=== PATIENT | male | born 1950 | race Caucasian/White ===

== ENCOUNTER 2020-11-20 12:20 | Emergency (ER) | payer MEDICARE, SELFPAY ==
--- NOTE | ~2020-11-20 | CT_ITS ---
EXAMINATION: CT abdomen pelvis w con EXAM DATE: 11/20/2020 14:09 INDICATION: Low abdominal pain for diverticulitis. TECHNIQUE: Spiral CT of the abdomen and pelvis was performed following intravenous injection of 100 m L Omnipaque 350. Axial, coronal and sagittal images were reviewed. The dose-length product (DLP) fo r this examination was 264.48 mGy-cm. The exposure was tailored according to patient size (auto mA e xposure control), and iterative reconstruction (ASIR) was used as additional dose reduction technique . Comparison is made to prior examination from CT 03/07/2018. FINDINGS: There is extensive colonic diverticulosis. Moderate amount of inflammation at the descendin g/sigmoid colonic junction, most likely uncomplicated diverticulitis. Inflammatory cancer not excluda ble. No perforation or abscess. The liver, spleen, adrenal glands and pancreas are unremarkable. Gallbladder is unremarkable. No bi liary obstruction. Portal and splenic veins are patent. Kidneys enhance symmetrically. There is no hydronephrosis. There is mild prostatomegaly. The bladder is unremarkable. There is no retroperit solis or pelvic lymphadenopathy. There is moderate scattered arteriosclerotic disease. There are no findings to suggest appendicitis. The stomach and small bowel are unremarkable. There is expected amount of colonic stool. No free intraperitoneal gas. The heart is normal in size. T here are no pericardial or pleural effusions. The lung bases are unremarkable. There are no osteobl astic or osteolytic lesions identified. IMPRESSION: Acute uncomplicated descending/sigmoid colonic diverticulitis. Inflammatory cancer less l ikely. Follow-up CT or colonoscopy if not recently screened. Reviewed, dictated and finalized at location B. MOTIVE ALIGNMENT SPECIALIST IMPRESSION: Acute uncomplicated descending/sigmoid colonic diverticulitis. Infl ammatory cancer less likely. Follow-up CT or colonoscopy if not recently screen ed.
[2020-11-20 12:44] VITALS: BP 127/68; PULSE 59; RESP 15; TEMP 36.9; O2SAT 100
[2020-11-20] MEDS: fentaNYL CITRATE INJ (*CRX) 100 MCG/2 ML VIAL 50 MCG IV PUSH ×2 (12:48→14:31)
[2020-11-20 12:53] LABS: Basophils Percent Auto 0.2 % (0.2-1.2); Eosinophils Absolute Auto 0.1 K/mm3 (0-0.3); Eosinophils Percent Auto 1.2 % (0-4.4); Hematocrit 44.1 % (42.0-52.0); Hemoglobin 14.5 g/dL (14.0-18.0); Immature Granulocyte Absolute 0.04 K/mm3 (0.00-0.031); Immature Granulocyte Percent A 0.4 % (0-0.5); Lymphocytes Absolute Auto 1.35 K/mm3 (0.9-3.2); Lymphocytes Percent Auto 12.9 % (18.3-44.2); Mean Corpuscular HGB Conc 32.9 g/dl (32-36); Mean Corpuscular Volume 85.3 fl (80-100); Mean Platelet Volume 9.4 fl (7.4-10.4); Monocytes Absolute Auto 0.9 K/mm3 (0.1-0.6); Monocytes Percent Auto 8.5 % (2.6-8.5); Neutrophils Percent Auto 76.8 % (45.5-73.1); Platelet Count Result 254 k/mm3 (150-375); Red Blood Count 5.17 M/mm3 (4.6-6.20); Red Cell Distribution Width 13.4 % (11.5-14.5); White Blood Count 10.4 K/mm3 (4.5-10.0)
[2020-11-20 13:32] LABS: Alanine Aminotransferase 25 U/L (4-50); Alkaline Phosphatase 60 U/L (38-126); Anion Gap 8 mmol/L (8-16); Aspartate Amino Transferase 27 U/L (17-59); Bilirubin,Total 0.6 mg/dL (0.2-1.3); Blood Urea Nitrogen 19 mg/dL (9-20); Calcium 9.4 mg/dL (8.4-10.2); Carbon Dioxide 27 mmol/L (22-30); Chloride 103 mmol/L (98-107); Estimated CRCL calculation 54 ml/min; Estimated Glomerular Filt Rate > 60; Glucose 109 mg/dL (75-110); Potassium 4.2 mmol/L (3.4-5.0); Sodium 138 mmol/L (137-145)
--- NOTE | 2020-11-20 14:45 | ED.GENADULT ---
HPI - General Adult General Chief complaint: Abdominal Pain Stated complaint: abd pain Time Seen by Provider: 11/20/20 12:31 History of Present Illness HPI narrative: Patient is a 70-year-old male who was referred to the ER by his PCP who has left lower quadrant abdominal pain. Sudden onset over the last day. Has history of diverticulitis. Patient reports 1 week ago he had a fever but he felt it was related to a dental abscess he had to have procedure on. No chills or sweats. No nausea or vomiting. Has had no diarrhea like this. Sent in for further evaluation due to rapid development of pain. Related Data Allergies Allergy/AdvReac Type Severity Reaction Status Date / Time acetaminophen Allergy Unknown Nausea and Verified 11/20/20 13:10 Vomiting amoxicillin Allergy Unknown possible Verified 11/20/20 13:10 reaction doxycycline Allergy Unknown Unknown Verified 11/20/20 13:10 fluoxetine Allergy Unknown Nausea Verified 11/20/20 13:10 hydrocodone Allergy Unknown Nausea and Verified 11/20/20 13:10 Vomiting morphine Allergy Unknown Loss of Verified 11/20/20 13:10 Consciousness Contrast Media Allergy Unknown Unknown Uncoded 11/20/20 13:10 Review of Systems Review of Systems: All systems reviewed & are unremarkable except as noted in HPI and below Constitutional: Constitutional: Denies chills, Reports fever(s) and Denies weakness ENT: Denies nasal congestion and Denies sore throat Cardiovascular: Cardiovascular: Denies chest pain, Denies rapid heart rate and Denies radiating jaw, neck or arm pain Respiratory: Respiratory: Denies cough and Denies dyspnea Gastrointestinal: Gastrointestinal: Reports abdominal pain, Denies diarrhea, Denies nausea and Denies vomiting [facility] Past Medical History Medical History (Updated 11/20/20 @ 14:51 by Alvaro De Souza MD) Diverticulitis Family History Family History Mother Family history of cardiovascular disease Cerebrovascular accident, Onset Age: 85 Father Acute myocardial infarction Family history of cardiovascular disease, Onset Age: 60 Social History Social History (Updated 11/20/20 @ 11:58 by Jennifer Menjivar CMA) Second hand tobacco smoke exposure: No Alcohol intake: never Substance use: never Substance use type: does not use Gender identity (if verbalized by the patient): Male Spiritual care concerns: No Agree to blood products: Yes Exam Narrative: Exam Narrative: GENERAL: Well-appearing, well-nourished, and in no acute distress. HEAD: Normocephalic, atraumatic. CHEST: Clear to auscultation. No respiratory distress. HEART: Regular rate and rhythm. Normal peripheral pulses. ABDOMEN: Soft, tender palpation left lower quadrant with guarding, nondistended. EXTREMITIES: Normal range of motion. No edema. SKIN: Warm, dry, no rash. NEURO: Alert and oriented x3. PSYCH: Normal mood and affect. Course Course Emergency Course: Informed of results. Moderate improvement with fentanyl. Discharged with supportive medications. Vital Signs Vital signs: Vital Signs Temperature 98.5 F 11/20/20 12:44 Pulse Rate 59 L 11/20/20 12:44 Respiratory Rate 15 11/20/20 12:44 Blood Pressure 127/68 11/20/20 12:44 Pulse Oximetry 100 11/20/20 12:44 Temperature 98.5 F 11/20/20 12:44 Pulse Rate 59 L 11/20/20 12:44 Respiratory Rate 15 11/20/20 12:44 Blood Pressure 127/68 11/20/20 12:44 Pulse Oximetry 100 11/20/20 12:44 Medical Decision Making Vital Signs Vital Signs: Vital Signs Temperature 98.5 F 11/20/20 12:44 Pulse Rate 59 L 11/20/20 12:44 Respiratory Rate 15 11/20/20 12:44 Blood Pressure 127/68 11/20/20 12:44 Pulse Oximetry 100 11/20/20 12:44 Temperature 98.5 F 11/20/20 12:44 Pulse Rate 59 L 11/20/20 12:44 Respiratory Rate 15 11/20/20 12:44 Blood Pressure 127/68 11/20/20 12:44 Pulse Oximetry 100
[2020-11-20 15:07] VITALS: BP 125/70; PULSE 60; RESP 17; O2SAT 100
== END 2020-11-20 15:08 | disposition home or self-care (01) ==
PROVIDERS: Emergency Provider Emergency Medicine; PCP Family Medicine
DX: K57.92 Diverticulitis of intestine, part unspecified, without perforation or abscess without bleeding (principal)
CPT/HCPCS: 36415; 74177; 80053; 85025; 96374; 96376; 99284; J3010; Q9967

== ENCOUNTER → 2021-02-15 01:04 | Outpatient (CLI) | payer MEDICARE, SELFPAY ==
[2021-02-15 19:38] LABS: SARS-CoV-2 RNA PCR Negative
== END ==
PROVIDERS: PCP Family Medicine; Visit Provider Internal Medicine Gastroenterology
DX: Z01.812 Encounter for preprocedural laboratory examination (principal); Z20.822 Contact with and (suspected) exposure to COVID-19
CPT/HCPCS: C9803; U0003; U0005

== ENCOUNTER 2021-02-19 01:25 | Day surgery (SDC) | payer MEDICARE, SELFPAY ==
[2021-02-06 14:23] VITALS: BMI 22.8
[2021-02-19 10:38] VITALS: BP 121/71; PULSE 51; RESP 14; TEMP 36.5; O2SAT 100
[2021-02-19] MEDS: LACTATED RINGERS 1,000 ML 150 ML IV CONT (10:49)
--- NOTE | 2021-02-19 11:39 | P.PNAN_ITS ---
Anes - Initial Pre Proc Eval Procedure: Operation Date: 02/19/21 11:45 Proposed Procedures p Colonoscopy - Davin Sierra MD Date/Time: 02/19/21 11:39 Surgeon: Davin Sierra MD Pre Op Diagnosis: diverticulitis Patient Data Age: 70 Gender: M Height: 5 ft 9 in Weight: 68.4 kg Last Vital Signs Temp 97.7 F 02/19/21 10:38 Pulse 51 L 02/19/21 10:38 Resp 14 02/19/21 10:38 BP 121/71 02/19/21 10:38 Pulse Ox 100 02/19/21 10:38 Allergies Allergy/AdvReac Type Severity Reaction Status Date / Time doxycycline Allergy Unknown Unknown Verified 02/19/21 10:36 fluoxetine Allergy Unknown Nausea Verified 02/19/21 10:36 hydrocodone Allergy Unknown Nausea and Verified 02/19/21 10:36 Vomiting morphine Allergy Unknown Loss of Verified 02/19/21 10:36 Consciousness Home Medications Medication Instructions Recorded Confirmed Type No Home Medications 02/06/21 02/06/21 History Patient hx anesthesia problems: none Family hx anesthesia problems: none [facility] Past Medical History Medical History (Updated 02/19/21 @ 11:39 by Davin Sierra MD) Colon cancer screening Diverticulitis Family History Family History Mother Family history of cardiovascular disease Cerebrovascular accident, Onset Age: 85 Father Acute myocardial infarction Family history of cardiovascular disease, Onset Age: 60 Social History Social History Smoking status: Never smoker Second hand tobacco smoke exposure: No Alcohol intake: never Substance use: never Substance use type: does not use Living arrangements: with family Gender identity (if verbalized by the patient): Male Spiritual care concerns: No Agree to blood products: Yes Anes - Eval Final PreProcedure Day of Procedure 02/19/21 11:39 Patient weight: normal Heart: regular rate and rhythm and bradycardia Lungs: clear to auscultation Airway: Mallampati scale class II Neurological: alert and oriented Last oral intake: >/= 8 hours ASA classification: II Emergent: no Anesthetic plan: proceed Anesthesia type and monitoring: general GIVS and standard monitoring Informed Consent: The patient's anesthetic plan and its attendant risks and benefits were discussed with the patient/family/POA. Questions were solicited and answers provided to the satisfaction of the patient/family/POA.
--- NOTE | 2021-02-19 11:39 | PM.HPGS ---
History of Present Illness History of Present Illness Consent: Risks, benefits, and alternatives have been discussed and questions answered. Patient agrees to proceed with procedure. Chief complaint: diverticulitis Narrative: Leo Fontenot is a 70 year old male here for colon screening, last colonoscopy 2011. He had diverticulitis 11/2020 treated with abx Review of Systems Constitutional: Constitutional: Denies headache(s) and Denies weakness Eyes: Eyes: Denies blurry vision ENT: Reports Normal hearing present, Denies headache(s) and Denies neck pain Cardiovascular: Cardiovascular: Denies chest pain and Denies dyspnea Respiratory: Respiratory: Denies dyspnea Gastrointestinal: Gastrointestinal: Reports no additional gastrointestinal complaints Genitourinary: Genitourinary: Denies dysuria Musculoskeletal: Musculoskeletal: Denies neck pain Integumentary/Breasts: Skin/Breast: Denies dry skin Neurologic: Reports Normal hearing present, Denies headache(s) and Denies weakness Psychiatric: Psychiatric: Denies anxiety Endocrine: Endocrine: Denies change in body appearance Hematologic/Lymphatic: Hematologic/Lymphatic: Denies easy bleeding Allergic/Immunologic: Allergic/Immunologic: Denies urticaria PMFSH Past Medical History Medical History (Updated 02/19/21 @ 11:39 by Davin Sierra MD) Colon cancer screening Diverticulitis Family History Family History Mother Family history of cardiovascular disease Cerebrovascular accident, Onset Age: 85 Father Acute myocardial infarction Family history of cardiovascular disease, Onset Age: 60 Social History Social History Smoking status: Never smoker Second hand tobacco smoke exposure: No Alcohol intake: never Substance use: never Substance use type: does not use Living arrangements: with family Gender identity (if verbalized by the patient): Male Spiritual care concerns: No Agree to blood products: Yes Meds Home Medications and Allergies Home Medications Medication Instructions Recorded Confirmed Type No Home Medications 02/06/21 02/06/21 History Allergies Allergy/AdvReac Type Severity Reaction Status Date / Time doxycycline Allergy Unknown Unknown Verified 02/19/21 10:36 fluoxetine Allergy Unknown Nausea Verified 02/19/21 10:36 hydrocodone Allergy Unknown Nausea and Verified 02/19/21 10:36 Vomiting morphine Allergy Unknown Loss of Verified 02/19/21 10:36 Consciousness Vital Signs Vital Signs - 24 hr 02/19/21 10:38 Temperature 97.7 F Pulse Rate 51 L Respiratory Rate 14 Blood Pressure 121/71 Pulse Oximetry 100 Exam Const: General: comfortable and no acute distress HENMT: General nose exam: Normal nares present Eyes: General: appearance normal, both eyes and all related structures Neck: Neck: no JVD Resp: Auscultation: clear to auscultation bilaterally Cardio: Rate: regular rate Rhythm: regular rhythm GI: Inspection: non-distended GI Palp: Yes Soft to palpation Skin: General skin exam: normal color Neuro: General: gait normal Speech: normal speech Extrem: General: normal to inspection Psych: Mental Status: mental status grossly normal Assessment and Plan Assessment and plan (1) Colon cancer screening: Code(s): Z12.11 - Encounter for screening for malignant neoplasm of colon Status: Acute Assessment and Plan: colonoscopy
[2021-02-19 12:04] VITALS: BP 94/56; PULSE 54; RESP 16; O2SAT 97
[2021-02-19 12:14] VITALS: BP 94/57; PULSE 50; RESP 15; O2SAT 97
[2021-02-19 12:24] VITALS: BP 116/66; PULSE 50; RESP 12; O2SAT 99
== END 2021-02-19 12:34 | disposition home or self-care (01) ==
PROVIDERS: PCP Family Medicine; Visit Provider Internal Medicine Gastroenterology
PROC: 0DJD8ZZ Inspection of Lower Intestinal Tract, Via Natural or Artificial Opening Endoscopic (ICD-10-PCS; CPT 45378; principal; 2021-02-19 11:45)
DX: Z12.11 Encounter for screening for malignant neoplasm of colon (principal); D12.2 Benign neoplasm of ascending colon; D12.4 Benign neoplasm of descending colon; K63.5 Polyp of colon; K57.30 Diverticulosis of large intestine without perforation or abscess without bleeding; K64.8 Other hemorrhoids; Z87.19 Personal history of other diseases of the digestive system
CPT/HCPCS: 88305; C9803; J2001; J2704; J7120; U0003; U0005

== ENCOUNTER 2021-10-25 23:47 | Emergency (ER) | payer MEDICARE, SELFPAY ==
--- NOTE | ~2021-10-25 | CT_ITS ---
EXAMINATION: CT abdomen pelvis w con DATE: 10/26/2021 01:09 INDICATION: Left lower quadrant abdominal pain. Nausea and vomiting. TECHNIQUE: Computed tomography (CT) of the abdomen and pelvis was performed with 100 mL Omnipaque 350 intravenous contrast. Automated exposure control and iterative reconstruction technique were employe d. The dose-length product was 326.24 mGy-cm. COMPARISON: CT abdomen and pelvis 11/20/2020 FINDINGS: The visualized portions of the lung bases demonstrate mild atelectasis. No pleural effusion . The heart size is normal. There are coronary artery calcifications. No pericardial effusion. There are cysts in the liver measuring up to 9 mm. The gallbladder, spleen, pancreas, adrenal glands, and r ight kidney are normal. There is a 5 mm cyst in left kidney. There are scattered diverticula in the c olon. There is fat stranding around a diverticulum of distal descending colon with local bowel wall t hickening, consistent with with diverticulitis. There are no dilated loops of bowel. The appendix is normal. There is a small sliding hiatal hernia. There are no pathologically enlarged lymph nodes. The re is trace pelvic ascites. There is moderate thoracic spondylosis and mild lumbar spondylosis. IMPRESSION: 1. Acute diverticulitis of distal descending colon. No perforation or abscess. Reviewed, dictated and finalized at location A. ORT DUTY MANAGER
[2021-10-25 23:51] VITALS: BP 128/70; PULSE 67; RESP 20; TEMP 36.9; O2SAT 97
[2021-10-25 23:55] VITALS: BP 128/70
[2021-10-26] VITALS (9 sets, daily range): BP systolic 105–124; BP diastolic 59–72; PULSE 61–72; RESP 13–20; TEMP 37.4–37.6; O2SAT 97–99
[2021-10-26] MEDS: ONDANSETRON INJ 4 MG/2 ML VIAL IV PUSH (00:31)
[2021-10-26] MEDS: SODIUM CHLORIDE 0.9% IV 1,000 ML 999 ML IV CONT (00:32)
[2021-10-26] MEDS: MORPHINE SULFATE (*CRX) 4 MG/ML INJ IV PUSH ×2 (00:32→02:01)
[2021-10-26 00:38] LABS: Basophils Percent Auto 0.2 % (0.2-1.2); Eosinophils Percent Auto 0.1 % (0-4.4); Hematocrit 42.4 % (42.0-52.0); Hemoglobin 14.1 g/dL (14.0-18.0); Immature Granulocyte Absolute 0.04 K/mm3 (0.00-0.031); Immature Granulocyte Percent A 0.4 % (0-0.5); Lymphocytes Absolute Auto 0.89 K/mm3 (0.9-3.2); Lymphocytes Percent Auto 8.9 % (18.3-44.2); Mean Corpuscular HGB Conc 33.3 g/dl (32-36); Mean Corpuscular Hemoglobin 28.5 pg (26-34); Mean Corpuscular Volume 85.7 fl (80-100); Mean Platelet Volume 10.3 fl (7.4-10.4); Monocytes Absolute Auto 0.7 K/mm3 (0.1-0.6); Monocytes Percent Auto 7.2 % (2.6-8.5); Neutrophils Absolute Auto 8.4 K/mm3 (1.3-6.7); Neutrophils Percent Auto 83.2 % (45.5-73.1); Platelet Count Result 193 k/mm3 (150-375); Red Blood Count 4.95 M/mm3 (4.6-6.20); Red Cell Distribution Width 13.1 % (11.5-14.5); White Blood Count 10.1 K/mm3 (4.5-10.0)
[2021-10-26 00:54] LABS: Anion Gap 8 mmol/L (8-16); Blood Urea Nitrogen 15 mg/dL (9-20); Calcium 9.5 mg/dL (8.4-10.2); Carbon Dioxide 26 mmol/L (22-30); Chloride 101 mmol/L (98-107); Estimated CRCL calculation 54 ml/min; Estimated Glomerular Filt Rate > 60; Glucose 116 mg/dL (65-110); Sodium 135 mmol/L (137-145)
[2021-10-26 03:25] LABS: SARS-CoV-2 RNA PCR Negative
--- NOTE | 2021-10-26 04:27 | ED.ABDPAIN ---
HPI - Abdominal Pain General Chief Complaint: Abdominal Pain Stated Complaint: fever Time Seen by Provider: 10/25/21 23:53 History of Present Illness HPI narrative: Patient is a 71-year-old male who presents ER with left-sided abdominal pain. Worsening over the last day. No radiation. Cannot move or palpate his abdomen without severe pain. This is the same feeling he gets when he has a flare of diverticulitis. He has had multiple times over the last year. No diarrhea. No overt constipation. No alleviating factors. Related Data Home Medications Medication Instructions Recorded Confirmed ondansetron HCl 10/25/21 Allergies Allergy/AdvReac Type Severity Reaction Status Date / Time doxycycline Allergy Unknown Unknown Verified 10/25/21 23:56 fluoxetine Allergy Unknown Nausea Verified 10/25/21 23:56 hydrocodone Allergy Unknown Nausea and Verified 10/25/21 23:56 Vomiting Review of Systems Review of Systems: All systems reviewed & are unremarkable except as noted in HPI and below Constitutional: Constitutional: Denies chills, Denies fever(s) and Denies weakness ENT: Denies nasal congestion and Denies sore throat Cardiovascular: Cardiovascular: Denies chest pain, Denies rapid heart rate and Denies radiating jaw, neck or arm pain Respiratory: Respiratory: Denies cough and Denies dyspnea Gastrointestinal: Gastrointestinal: Reports abdominal pain, Denies constipation, Denies nausea and Denies vomiting Genitourinary: Genitourinary: Denies dysuria and Denies urinary frequency PMFSH Past Medical History Medical History (Updated 10/26/21 @ 04:28 by Alvaro De Souza MD) Colon cancer screening Diverticulitis 3-21 8-21 Vitreous hemorrhage Vitreous hemorrhage, left eye Family History Family History Mother Family history of cardiovascular disease Cerebrovascular accident, Onset Age: 85 Father Acute myocardial infarction Family history of cardiovascular disease, Onset Age: 60 Social History Social History Second hand tobacco smoke exposure: No Alcohol intake: never Substance use: never Substance use type: does not use Gender identity (if verbalized by the patient): Male Spiritual care concerns: No Agree to blood products: Yes Exam Narrative: GENERAL: Uncomfortable-appearing, well-nourished, and in no acute distress. HEAD: Normocephalic, atraumatic. CHEST: Clear to auscultation. No respiratory distress. HEART: Regular rate and rhythm. Normal peripheral pulses. ABDOMEN: Soft, left mid/lower quadrant tenderness with guarding nondistended. EXTREMITIES: Normal range of motion. No edema. SKIN: Warm, dry, no rash. NEURO: Alert and oriented x3. PSYCH: Normal mood and affect. Course Course Emergency Course: Patient informed results. Pain improved with morphine x2. Patient hydrated. Will start on Cipro Flagyl for home. Patient underwent colonoscopy 02/2021. Vital Signs Vital signs: Vital Signs Temperature 98.5 F 10/25/21 23:51 Pulse Rate 67 10/25/21 23:51 Respiratory Rate 20 10/25/21 23:51 Blood Pressure 128/70 10/25/21 23:51 Pulse Oximetry 97 10/25/21 23:51 Temperature 99.3 F 10/26/21 04:52 Pulse Rate 65 10/26/21 04:52 Respiratory Rate 16 10/26/21 04:52 Blood Pressure 105/70 10/26/21 04:52 Pulse Oximetry 99 10/26/21 04:52 MDM - Abdominal Pain Lab Data Result diagrams: 10/26/21 00:24 10/26/21 00:24 Labs: Lab Results 10/26/21 10/26/21 10/26/21 Range/Units 00:24 00:24 02:13 WBC 10.1 H (4.5-10.0) K/mm3 RBC 4.95 (4.6-6.20) M/mm3 Hgb 14.1 (14.0-18.0) g/dL Hct 42.4 (42.0-52.0) % MCV 85.7 (80-100) fl MCH 28.5 (26-34) pg MCHC 33.3 (32-36) g/dl RDW 13.1 (11.5-14.5) % Plt Count 193 (150-375) k/mm3 MPV 10.3 (7.4-10.4) fl Immatu
== END 2021-10-26 04:55 | disposition home or self-care (01) ==
PROVIDERS: Emergency Provider Emergency Medicine; PCP Family Medicine
DX: K57.32 Diverticulitis of large intestine without perforation or abscess without bleeding (principal); Z20.822 Contact with and (suspected) exposure to COVID-19
CPT/HCPCS: 36415; 74177; 80048; 85025; 96361; 96374; 96375; 96376; 99284; C9803; J2270; J2405; J7030; Q9967; U0003; U0005

== ENCOUNTER 2022-06-12 21:15 | Outpatient (NON) | payer MEDICARE, SELFPAY | END 2022-06-12 21:16 | disposition home or self-care (01) | LOC: ANHLAB 21:16 | PROVIDERS: PCP Family Medicine; Visit Provider Nurse Practitioner Family | DX: R39.9 Unspecified symptoms and signs involving the genitourinary system (principal) | CPT/HCPCS: 87086 ==

== ENCOUNTER 2022-09-02 13:53 | Outpatient (CLI) | payer MEDICARE, SELFPAY ==
[2022-09-02 14:43] LABS: Influenza A QL RT-PCR Negative (Negative); Influenza B QL RT-PCR Negative (Negative); SARS-CoV-2 RNA PCR Positive
== END 2022-09-02 13:54 | disposition home or self-care (01) ==
PROVIDERS: PCP Family Medicine; Visit Provider Family Medicine
DX: U07.1 COVID-19 (principal)
CPT/HCPCS: 87636

== ENCOUNTER → 2022-09-15 09:28 | Outpatient (CLI) | payer MEDICARE, SELFPAY ==
--- NOTE | ~2022-09-15 | XR_ITS ---
Clinical Indication: Cough, shortness of breath PA and lateral views of the chest: Comparison: None Findings: The lungs are clear, without evidence of focal consolidation or pleural effusion. Cardiome diastinal silhouette is within normal limits. Bones and soft tissues are unremarkable. Impression: Normal chest. Reviewed, dictated and finalized at [facility]. NEYMAN WELDER Impression: Normal chest.
== END ==
PROVIDERS: PCP Physician Assistant; Visit Provider Physician Assistant
DX: R06.02 Shortness of breath (principal); R05.9 Cough, unspecified
CPT/HCPCS: 71046

== ENCOUNTER 2022-09-24 09:35 | Outpatient (CLI) | payer MEDICARE, SELFPAY ==
--- NOTE | 2022-09-24 09:37 | EST_ITS ---
Patient Info Name: Leo Fontenot Age: 72 years : 1950 Gender: Male Ht: 68 in Wt: 155 lbs BSA: 1.84 m2 HR: 54 bpm BP: 117 / 74 mmHg Technical Quality: Good Exam Date: 09/24/2022 10:08 AM Exam Location: [facility] Card Pulmonary Exam Room: stress lab [facility] Patient Status: Outpatient Admit Date: 09/24/2022 Staff Ordering Physician: Josef Turcios PA-C Tunnel Elastic Operator Chainstitch: Lilliana Gallardo RCS Attending Provider: DR. JOSHI Referring Physician: Karolina SAINI; Exercise Technologist: Disha Mares CT Exercise Physician: Edilson Joshi DO Exam Type: CA stress echo Study Info Indications R07.89 - Other chest pain Treadmill exercise stress echocardiogram is performed. Summary 1. 1. Negative Damien exercise stress test for ischemic ST changes by ECG criteria. 2. 2. Excellent functional capacity, achieving 12 METs of workload. 3. 3. Appropriate HR response to exercise. 4. 4. Appropriate HR recovery at 1 minute post exercise. 5. 5. Negative stress echocardiogram for ischemia by wall motion analysis. 6. 6. Patient informed of the above results. Stress Echo Findings Left Ventricle Appropriate increase in LV endocardial thickening with systole. Appropriate augmentation of contractility with systole. No wall motion abnormality. Left Ventricle Normal LV systolic function, no wall motion abnormality. Protocol: Damien Stress ECG Details Stage: REST Duration (min): 1 min : 26 sec Speed (mph): 0.0 Grade (%): 0 HR (bpm): 48 SBP (mmHg): 117 DBP (mmHg): 74 METS: --- Stage: REST Duration (min): 25 min : 18 sec Speed (mph): 0.0 Grade (%): 0 HR (bpm): 54 SBP (mmHg): 117 DBP (mmHg): 74 METS: --- Stage: STAGE 1 Duration (min): 1 min : 0 sec Speed (mph): 1.7 Grade (%): 10 HR (bpm): 77 SBP (mmHg): 117 DBP (mmHg): 74 METS: --- Stage: STAGE 1 Duration (min): 2 min : 0 sec Speed (mph): 1.7 Grade (%): 10 HR (bpm): 83 SBP (mmHg): 117 DBP (mmHg): 74 METS: --- Stage: STAGE 1 Duration (min): 3 min : 0 sec Speed (mph): 1.7 Grade (%): 10 HR (bpm): 81 SBP (mmHg): 165 DBP (mmHg): 50 METS: --- Stage: STAGE 2 Duration (min): 1 min : 0 sec Speed (mph): 2.5 Grade (%): 12 HR (bpm): 89 SBP (mmHg): 165 DBP (mmHg): 50 METS: --- Stage: STAGE 2 Duration (min): 2 min : 0 sec Speed (mph): 2.5 Grade (%): 12 HR (bpm): 95 SBP (mmHg): 157 DBP (mmHg): 54 METS: --- Stage: STAGE 2 Duration (min): 3 min : 0 sec Speed (mph): 2.5 Grade (%): 12 HR (bpm): 99 SBP (mmHg): 157 DBP (mmHg): 54 METS: --- Stage: STAGE 3 Duration (min): 1 min : 0 sec Speed (mph): 3.4 Grade (%): 14 HR (bpm): 111 SBP (mmHg): 181 DBP (mmHg): 58 METS: --- Stage: STAGE 3 Duration (min): 2 min : 0 sec Speed (mph): 3.4 Grade (%): 14 HR (bpm): 119 SBP (mmHg): 181 DBP (mmHg): 58 METS: --- Trino
--- NOTE | 2022-09-28 16:02 | WPDHOLTEREM ---
Holter/Event Monitor Holter/Event Monitor Date of procedure: 09/24/22 Holter/Event Procedure: 48 Hr Holter Monitor Indications: Chest pain Conclusion: 1. 48 hour holter monitor on 09/24/22. 2. Predominant rhythm is sinus rhythm. HR range 39-138 bpm; average HR 57 bpm. HR at 39 bpm was at 06:43 and HR at 138 bpm was at 19:12. 3. There are 198 premature supraventricular complexes and 7 supraventricular couplets. There are 5 episodes of atrial tachycardia, fastest at 143 bpm and longest lasted 4 beats. 4. There are 36 premature ventricular complexes and 1 ventricular couplet. No ventricular tachycardia. 5. No sinoatrial or atrioventricular blocks. No significant pauses greater than 2 seconds. 6. No symptoms available for correlation.
== END 2022-09-24 09:36 | disposition home or self-care (01) ==
LOC: ANHCARD 09:36
PROVIDERS: PCP Physician Assistant; Visit Provider Physician Assistant
DX: R06.02 Shortness of breath (principal); R07.9 Chest pain, unspecified
CPT/HCPCS: 93225; 93226; 93351

== ENCOUNTER 2024-12-25 15:53 | Outpatient (CLI) | payer MEDICARE, SELFPAY ==
--- NOTE | ~2024-12-25 | XR_ITS ---
HISTORY: M25.511 - Pain in right shoulder COMPARISON: None TECHNIQUE: 2 views of the right shoulder were performed FINDINGS: No acute fracture. The glenohumeral and acromioclavicular joint space is maintained The visualized portion of the adjacent right lung is clear. The humeral head is well seated within the glenoid fossa. IMPRESSION: No acute fracture or anterior dislocation. Reviewed, dictated and finalized at location A.
== END 2024-12-25 15:54 | disposition home or self-care (01) ==
PROVIDERS: PCP Nurse Practitioner Family; Visit Provider Nurse Practitioner Family
DX: M25.511 Pain in right shoulder (principal)
CPT/HCPCS: 73030

== ENCOUNTER 2025-02-07 12:39 | Outpatient (CLI) | payer MEDICARE, SELFPAY ==
--- NOTE | ~2025-02-07 | MR_ITS ---
EXAMINATION: MR shoulder RT wo con DATE: 02/07/2025 13:17 INDICATION: Right shoulder pain TECHNIQUE: Magnetic resonance imaging (MRI) of the right shoulder was performed without intravenous c ontrast. Sequences included axial PD-weighted FS FSE, coronal oblique PD-weighted FS FSE, coronal obl ique T2-weighted FS FSE, sagittal PD-weighted FS FSE, and sagittal T1-weighted SE. COMPARISON: None. FINDINGS: Coracoacromial arch: The acromion undersurface is curved in morphology (type II). The coracoacromial ligament is normal. S evere acromioclavicular osteoarthritis. Rotator cuff: Moderate supraspinatus and mild infraspinatus tendinopathy. There is a partial thickness articular si ded tear extending 2 cm AP along the superior and anterior middle facet footplates of the supraspinat us tendon and conjoined portion of the supraspinatus and infraspinatus tendons. This most severe at t he tear involves up to two thirds of the tendon thickness. There is up to 1 cm medial retraction of t he torn articular side of the tendon. The teres minor tendon is normal. Moderate subscapularis tendin opathy with mild longitudinal split tearing extending along the distal 2 cm the cephalad two thirds o f the tendon. Normal rotator cuff muscle bulk and signal. Biceps tendon, glenoid labrum and glenohumeral cartilage: Moderate tendinopathy of the intra-articular and proximal extra-articular portion of the long head bi ceps tendon mild associated bicipital tenosynovitis. There is mild partial-thickness cartilage loss w ith mild chondral surface regularity but without degenerative subchondral changes along the apex of t he humeral head and with relatively smooth chondral surface along the inferomedial aspect of the brody ral head. Glenoid cartilage appears relatively preserved. Fluid: Small glenohumeral joint effusion. Synovitis and moderate amount fluid in subacromial/subdeltoid burs a consistent with bursitis. No loose osteochondral bodies. Bones: Bone alignment is normal. No fracture or pathologic marrow replacing process. Reticular edema-like an d cystlike changes at both sides of the acromioclavicular joint. Mild cystic change at the greater tu berosity likely related to rotator cuff disease. IMPRESSION: 1. Moderate supraspinatus and mild infraspinatus tendinopathy with moderate severity partial-thicknes s articular sided tear along the greater tuberosity footplate of the supraspinatus and conjoined supr aspinatus and infraspinatus tendons. 2. 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 3. Moderate tendinopathy of the long head biceps tendon. 4. Moderate subacromial/subdeltoid bursitis. Reviewed, dictated and finalized at location A. IMPRESSION: 1. Moderate supraspinatus and mild infraspinatus tendinopathy with moderate sev erity partial-thickness articular sided tear along the greater tuberosity footp late of the supraspinatus and conjoined supraspinatus and infraspinatus tendons . 2. 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 3. Moderate tendinopathy of the long head biceps tendon. 4. Moderate subacromial/subdeltoid bursitis.
== END 2025-02-07 12:40 | disposition home or self-care (01) ==
LOC: GOSHIMG 12:39
PROVIDERS: PCP Nurse Practitioner Family; Visit Provider Nurse Practitioner Family
DX: M67.813 Other specified disorders of tendon, right shoulder (principal); M19.011 Primary osteoarthritis, right shoulder; M75.21 Bicipital tendinitis, right shoulder; M75.51 Bursitis of right shoulder
CPT/HCPCS: 73221

== ENCOUNTER 2025-04-13 00:52 | Day surgery (SDC) | payer MEDICARE, SELFPAY ==
[2025-03-28 13:20] VITALS: BMI 22.8
--- OUTSIDE RECORDS SUMMARY | 2025-04-13 00:55 | XMS_ITS | Clinical Summary ---
Author Organization [facility] Address [address] [place] [address] Care Team Providers Care Multimedia Coordinator Name Role Phone Corbin Sr MD Primary Care Provider [phone] Allergies No known active allergies Medications No known medications Active Problems No known active problems Encounters Date Type Department Care Team Description 03/21/2025 10:15 AM CDT Office Visit [facility] Orthopaedic Surgery [address] [place] [address] 12th [place] [address] [place] [address] Karthik Dickson MD Right shoulder pain, unspecified chronicity (Primary Dx); Nontraumatic incomplete tear of right rotator cuff 03/21/2025 10:03 AM CDT - 03/21/2025 11:59 PM CDT Hospital Encounter [facility] [address] [place] [address] Discharge Disposition: Discharge to home or self care 03/21/2025 9:57 AM CDT - 03/21/2025 11:59 PM CDT Hospital Encounter [facility] [place] [facility] ([facility]) [address] [place] [address] Right shoulder pain, unspecified chronicity Discharge Disposition: Discharge to home or self care from Last 3 Months Social History Tobacco Use Types Packs/Day Years Used Date Smoking Tobacco: Former Cigarettes Tobacco Cessation:Counseling Given: Not Answered Sex and Gender Information Value Date Recorded Sex Assigned at Not on file Legal Sex Male 11:11 AM CDT Gender Identity Male 03/14/2025 7:47 AM CDT Sexual Orientation Straight 03/14/2025 7: 47 AM CDT Obstetrics History Last Filed Vital Signs Vital Sign Reading Time Taken Comments Blood Pressure - - Pulse - - Temperature - - Respiratory Rate - - Oxygen Saturation - - Inhaled Oxygen Concentration - - Weight 68 kg (150 lb) 03/21/2025 10:12 AM CDT Height 172.7 cm (5' 8) 03/21/2025 10:12 AM CDT Body Mass Index 22.81 03/21/2025 10:12 AM CDT Plan of Treatment Health Maintenance Due Date Last Done Comments Colon Cancer Screening-Colonoscopy 1950 Depression Screening 1950 Fall Risk Assessment 1950 Hepatitis C Screening 1950 DTaP/Tdap/Td Vaccine (1 - Tdap) 1962 Hepatitis B Screening 1969 Zoster Vaccine (1 of 2) 2001 Abdominal Aortic Aneurysm (A AA) Screen 2016 Well Visit 65+ 2016 Pneumococcal vaccine 65+ (2 of 2 - PCV) 07/13/2023 07/13/2022 Covid-19 Vaccine ( season) 2024 08/28/2021, 11/25/2020, 11/04/2020 Influenza Vaccine (#1) 2025 07/14/2023, 2021 Procedures Procedure Name Priority Date/Time Associated Diagnosis Comments XR SHOULDER RIGHT 2 OR MORE VIEWS Schedule Routine, Read Routine (OP Routine) 03/21/2025 10:10 AM CDT Right shoulder pain, unspecified chronicity MSK MR OUTSIDE REFERENCE Routine 03/21/2025 10:03 AM CDT from Last 3 Months Results * XR Shoulder Right 2+ View (03/21/2025 10:10 AM CDT) Anatomical Region Laterality Modality Upper Extremities, Shoulder Right Comp uted Radiography 03/21/2025 10:2 8 AM CDT Impressions 03/21/2025 10:28 AM CDT Mild right shoulder osteoarthritis. Electronically signed by: Pierce Lu M.D. Narrative 03/21/2025 10:28 AM CDT EXAMINATION: XR SHOULDER RIGHT 2 OR MORE VIEWS HISTORY: Right shoulder pain FINDINGS: 4 views of the right shoulder were performed without prior comparison. Alignment of the shoulder is normal. There is moderate acromioclavicular and mild glenohumeral osteoarthritis. There is no acute fracture. Procedure Note Pierce Lu MD PhD - 03/21/2025 EXAMINATION: XR SHOULDER RIGHT 2 OR MORE VIEWS HISTORY: Right shoulder pain FINDINGS: 4 views of the right shoulder were performed without prior comparison. Alignment of the shoulder is normal. There is moderate acromioclavicular and mild glenohumeral osteoarthritis. There is no acute fracture. IMPRESSION: Mild right shoulder osteoarthritis. Electronically signed by: Pierce Lu M.D. Karthik Dickson MD IMG XR PROCEDURES Final Re sult * MSK MR Outside Reference (03/21/2025 10:03 AM CDT) Impressions [facility] - 03/21/2025 10:03 AM CDT These images are for Reference purposes only and have not been reviewed by [facility]iology. There will be no report generated by a [facility] Radiologist. Narrative [facility] - 03/21/2025 10:03 AM CDT EXAMINATION: Images For Reference Purposes Only Karthik Dickson MD IMG MRI PROCEDURES Final R esult [facility] from Last 3 Months Insurance [facility] MEDICARE ADVANTAGE [facility] Address: [address] [address] [place] [address] [facility] MEDICARE ADVANTAGE [facility] Address: [address] [address] [place] [address] Care Teams Multimedia Coordinator Relationship Specialty Start Date End Date Corbin Sr MD [address] [facility][NOTE [address]] [address] [place] [address] PCP - General Family Medicine 02/13/25
--- OUTSIDE RECORDS SUMMARY | 2025-04-13 00:55 | XMS_ITS | Referral Summary ---
Author Organization [facility] Address [address] [place] [address] Care Team Providers Care [employer]ator [employer] Name Role Phone Corbin Sr MD Primary Care Provider [phone] Encounters Date Type Department Care Team Description 03/21/2025 10:03 AM CDT - 03/21/2025 11:59 PM CDT Hospital Encounter [facility] [place] [facility] ([facility]) [address] [place] [address] Discharge Disposition: Discharge to home or self care 03/21/2025 9:57 AM CDT - 03/21/2025 11:59 PM CDT Hospital Encounter [facility] [place] [facility] ([facility]) [address] [place] [address] Right shoulder pain, unspecified chronicity Discharge Disposition: Discharge to home or self care 03/21/2025 10:15 AM CDT Office Visit [facility] Orthopaedic Surgery [address] [place] [address] Advanced Medicine 12th [place] [address] [place] [address] Karthik Dickson MD Right shoulder pain, unspecified chronicity (Primary Dx); Nontraumatic incomplete tear of right rotator cuff from Last 3 Months Allergies No known active allergies Medications No known medications Active Problems No known active problems Social History Tobacco Use Types Packs/Day Years Used Date Smoking Tobacco: Former Cigarettes Tobacco Cessation:Counseling Given: Not Answered Sex and Gender Information Value Date Recorded Sex Assigned at Not on file Legal Sex Male 11:11 AM CDT Gender Identity Male 03/14/2025 7:47 AM CDT Sexual Orientation Straight 03/14/2025 7: 47 AM CDT Last Filed Vital Signs Vital Sign Reading Time Taken Comments Blood Pressure - - Pulse - - Temperature - - Respiratory Rate - - Oxygen Saturation - - Inhaled Oxygen Concentration - - Weight 68 kg (150 lb) 03/21/2025 10:12 AM CDT Height 172.7 cm (5' 8) 03/21/2025 10:12 AM CDT Body Mass Index 22.81 03/21/2025 10:12 AM CDT Plan of Treatment Not on file Procedures Procedure Name Priority Date/Time Associated Diagnosis [...] only and have not been reviewed by [facility]iology. There will be no report generated by a [facility] Radiologist. Narrative [facility] - 03/21/2025 10:03 AM CDT EXAMINATION: Images For Reference Purposes Only us Karthik Dickson MD IMG MRI PROCEDURES Final R esult [facility] from Last 3 Months Insurance [facility] MEDICARE ADVANTAGE [facility] MEDIC[facility] Address: [address] [address] [facility] MEDICARE ADVANTAGE Care Teams Fab[employer]ator [employer] Furn[employer] Relationship Specialty Start Date End Date Corbin Sr MD [address] [place] [address] DR PARIKH [address] [place] [id number] PCP - General Family Medicine 02/13/25
[2025-04-13 08:23] VITALS: BP 116/64; PULSE 47; RESP 18; TEMP 36.9; O2SAT 100
[2025-04-13] MEDS: LACTATED RINGERS 1,000 ML 150 ML IV CONT (08:33)
--- NOTE | 2025-04-13 09:18 | P.PNAN_ITS ---
Anes - Initial Pre Proc Eval Procedure: Operation Date: 04/13/25 09:30 Proposed Procedures p Screening Colonoscopy - Davin Sierra MD Date/Time: 04/13/25 09:18 Surgeon: Davin Sierra MD Pre Op Diagnosis: neoplasm screening Patient Data Age: 74 Gender: M Height: 1.73 m Weight: 63.4 kg Last Vital Signs Temp 36.9 C 04/13/25 08:23 Pulse 47 L 04/13/25 08:23 Resp 18 04/13/25 08:23 BP 116/64 04/13/25 08:23 Pulse Ox 100 04/13/25 08:23 O2 Del Method Room Air 04/13/25 08:23 Allergies Allergy/AdvReac Type Severity Reaction Status Date / Time doxycycline AdvReac Unknown Nausea Verified 04/13/25 08:22 fluoxetine AdvReac Unknown Nausea Verified 04/13/25 08:22 hydrocodone AdvReac Unknown Nausea and Verified 04/13/25 08:22 Vomiting Home Medications ?Medication ?Instructions ?Recorded ?Confirmed ?Type No Home Medications 03/28/25 04/13/25 History Patient hx anesthesia problems: none Family hx anesthesia problems: none Results Review: All pre-operative results and documents have been reviewed as part of the pre- operative evaluation. 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) Sick sinus syndrome Vitreous hemorrhage Vitreous hemorrhage, left eye Colon cancer screening Diverticulitis 3-21 8-21 Family History Family History Mother Family history of cardiovascular disease Cerebrovascular accident, Onset Age: 85 Father Acute myocardial infarction Family history of cardiovascular disease, Onset Age: 60 Social History Social History Smoking status: Never smoker Second hand tobacco smoke exposure: No Alcohol intake: never Substance use: never Substance use type: does not use Lack of Transportation: No Lack of Food: Never True Current Housing: I Have Housing Concerned About Future Housing: No Difficulty Paying Gas/Electric Bills: No Difficulty Paying for Meds: No Currently Unemployed: No Education: Master's Degree or Higher Difficulty w/ Childcare or Family Care: No Living arrangements: with family Occupation/Education: retired Gender identity (if verbalized by the patient): Male Spiritual care concerns: No Agree to blood products: Yes Anes - Eval Final PreProcedure Day of Procedure 04/13/25 09:18 Patient weight: normal Heart: regular rate and rhythm Lungs: clear to auscultation Airway: Mallampati scale class II Neurological: alert and oriented Last oral intake: >/= 8 hours ASA classification: II Emergent: no Anesthetic plan: proceed Anesthesia type and monitoring: general GIVS and standard monitoring Results Review: All pre-operative results and documents have been reviewed as part of the pre- operative evaluation. Informed Consent: The patient's anesthetic plan and its attendant risks and benefits were discussed with the patient/family/POA. Questions were solicited and answers provided to the satisfaction of the patient/family/POA.
--- NOTE | 2025-04-13 09:22 | PM.HPGS ---
History of Present Illness History of Present Illness Consent: Risks, benefits, and alternatives have been discussed and questions answered. Patient agrees to proceed with procedure. 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) Sick sinus syndrome Vitreous hemorrhage Vitreous hemorrhage, left eye Colon cancer screening Diverticulitis 3 8- Family History Family History Mother Family history of cardiovascular disease Cerebrovascular accident, Onset Age: 85 Father Acute myocardial infarction Family history of cardiovascular disease, Onset Age: 60 Social History Social History Smoking status: Never smoker Second hand tobacco smoke exposure: No Alcohol intake: never Substance use: never Substance use type: does not use Lack of Transportation: No Lack of Food: Never True Current Housing: I Have Housing Concerned About Future Housing: No Difficulty Paying Gas/Electric Bills: No Difficulty Paying for Meds: No Currently Unemployed: No Education: Master's Degree or Higher Difficulty w/ Childcare or Family Care: No Living arrangements: with family Occupation/Education: retired Gender identity (if verbalized by the patient): Male Spiritual care concerns: No Agree to blood products: Yes Meds Home Medications and Allergies Home Medications ?Medication ?Instructions ?Recorded ?Confirmed ?Type No Home Medications 03/28/25 04/13/25 History Allergies Allergy/AdvReac Type Severity Reaction Status Date / Time doxycycline AdvReac Unknown Nausea Verified 04/13/25 08:22 fluoxetine AdvReac Unknown Nausea Verified 04/13/25 08:22 hydrocodone AdvReac Unknown Nausea and Verified 04/13/25 08:22 Vomiting Vital Signs Vital Signs - 24 hr 04/13/25 08:23 Temperature 98.4 F Pulse Rate 47 L Respiratory Rate 18 Blood Pressure 116/64 Pulse Oximetry 100 Oxygen Delivery Room Air Exam Const: General: comfortable and no acute distress HENMT: Face/Nose/Sinus: Normal nares present Eyes: General: appearance normal, both eyes and all related structures Neck: Neck: no JVD Resp: Auscultation: clear to auscultation bilaterally Cardio: Rate: regular rate Rhythm: regular rhythm GI: Inspection: non-distended GI Palp: Yes Soft to palpation Skin: General skin exam: normal color Neuro: Speech: normal speech Extrem: General: normal to inspection Psych: Mental Status: mental status grossly normal Assessment and Plan Assessment and plan (1) Tubular adenoma of colon: Code(s): D12.6 - Benign neoplasm of colon, unspecified Status: Acute Assessment and Plan: colonoscopy
--- NOTE | 2025-04-13 09:43 | S_PTH ---
PATIENT: Leo Fontenot LOC: [facility] Metz#:[id number] AGE/SX: 74/M ROOM: RE04/13/[address]: Davin Sierra MD : 1950 BED: DIS: 04/13/2025 SPEC #: [id number] RECD: 04/13/25 11:41 STATUS: PAULO BANDA #: [id number] ANU: 04/13/25 09:[address]: Davin Sierra DEPT: [facility] Surgical RECD BY: Zaria Benson ENTERED: 04/13/25 11:42 SP TYPE: Surgical OTHR DR: Corbin Sr MD Tissues: A - Colon Polypectomy Procedures: Hematoxylin and Eosin Stain Gross and Microscopic Level 4
[2025-04-13 09:44] VITALS: BP 109/59; PULSE 44; RESP 16; O2SAT 99
[2025-04-13 09:54] VITALS: BP 109/65; PULSE 42; RESP 19; O2SAT 100
[2025-04-13 10:04] VITALS: BP 115/65; PULSE 46; RESP 14; O2SAT 100
== END 2025-04-13 10:13 | disposition home or self-care (01) ==
PROVIDERS: PCP Family Medicine; Referring Provider Internal Medicine Gastroenterology; Visit Provider Internal Medicine Gastroenterology
PROC: 0DJD8ZZ Inspection of Lower Intestinal Tract, Via Natural or Artificial Opening Endoscopic (ICD-10-PCS; CPT 45378; principal; 2025-04-13 09:30)
DX: Z12.11 Encounter for screening for malignant neoplasm of colon (principal); K63.5 Polyp of colon; K57.30 Diverticulosis of large intestine without perforation or abscess without bleeding; K64.8 Other hemorrhoids
CPT/HCPCS: 45385; 88305; J2704; J7120